=== PATIENT | female | born 1990 | race African-American/Black ===

== ENCOUNTER 2020-08-02 14:08 | Outpatient (CLI) | payer OTHER, SELFPAY | END 2020-08-02 14:09 | disposition home or self-care (01) | LOC: ANHAUDIO 14:11 | DX: H91.21 Sudden idiopathic hearing loss, right ear (principal) | CPT/HCPCS: 92557; 92567 ==

== ENCOUNTER 2020-09-21 09:41 | Outpatient (RCR) | payer OTHER, SELFPAY | END 2020-09-21 23:59 | disposition home or self-care (01) | LOC: ANHAUDIO 09:41 | DX: Z46.1 Encounter for fitting and adjustment of hearing aid (principal) | CPT/HCPCS: V5221; V5240 ==